=== PATIENT | female | born 1955 | race Caucasian/White ===

== ENCOUNTER → 2017-12-24 | Outpatient (REF) | payer BC ==
[2017-12-24 17:46] LABS: ALBUMIN 4.1 GM/DL (3.2-5.2); ALBUMIN/GLOBULIN RATIO 1.32 (1.00-1.93); ALKALINE PHOSPHATASE 89 U/L (45-117); ALT/SGPT 23 U/L (12-78); ANION GAP 8 MEQ/L (8-16); AST/SGOT 19 U/L (7-37); BILIRUBIN,TOTAL 0.6 MG/DL (0.2-1.0); BLOOD UREA NITROGEN 19 MG/DL (7-18); CALCIUM LEVEL 9.1 MG/DL (8.8-10.2); CARBON DIOXIDE LEVEL 29 MEQ/L (21-32); CHLORIDE LEVEL 106 MEQ/L (98-107); CHOLESTEROL LEVEL 189 MG/DL (<200); CHOLESTEROL RISK RATIO 2.779 (<5); CREATININE FOR GFR 0.89 MG/DL (0.55-1.30); GLOMERULAR FILTRATION RATE > 60.0 (>45); GLUCOSE, FASTING 88 MG/DL (70-100); HDL CHOLESTEROL 68 MG/DL (>40); LDL CHOLESTEROL 104.6 MG/DL (<100); NON-HDL-C 121 MG/DL; POTASSIUM SERUM 4.1 MEQ/L (3.5-5.1); SODIUM LEVEL 143 MEQ/L (136-145); TOTAL PROTEIN 7.2 GM/DL (6.4-8.2); TRIGLYCERIDES LEVEL 82 MG/DL (<150)
[2017-12-24 18:36] LABS: TOTAL 25(OH) VITAMIN D 21.7 NG/ML (30.0-100.0)
== END ==
LOC: M LABDRWCV 16:08
DX: E55.9 Vitamin D deficiency, unspecified (principal); I10 Essential (primary) hypertension
CPT/HCPCS: 80053

== ENCOUNTER 2018-12-02 21:15 | Emergency (ER) | payer BC ==
[~2018-12-02] VITALS: Ht 172.7 cm; Wt 100.0 kg
[~2018-12-02 21:15] MED LIST: CELE1CAP4 PO; COUM2.5T17 PO; LISI10TA2 PO; LYRI75CA PO; METO25TAB OR; PERC5TAB12 PO; SIMV20TA2 PO
[2018-12-02] MEDS ORDERED: OMEP40CA2 (21:28)
[2018-12-02] MEDS: METOPROLOL 5 MG/5 ML VIAL IV SCH ×2 (21:50→22:14)
[2018-12-02 22:10] LABS: BASO # 0.1 10^3/uL (0.0-0.2); BASO % 0.8 % (0.0-1.0); EOS # 0.1 10^3/uL (0.0-0.50); EOS % 1.4 % (0.0-3.0); HEMATOCRIT 40.1 % (36.0-47.0); HEMOGLOBIN 13.1 g/dl (12.0-15.5); LYMPH # 2.8 10^3/uL (1.5-4.5); LYMPH % 38.9 % (24.0-44.0); MEAN CORPUSCULAR HEMOGLOBIN 28.3 pg (27.0-33.0); MEAN CORPUSCULAR HGB CONC 32.7 g/dl (32.0-36.5); MEAN CORPUSCULAR VOLUME 86.6 fl (80.0-96.0); MONO # 0.6 10^3/uL (0.0-0.8); NEUTROPHILS # 3.6 10^3/uL (1.8-7.7); NEUTROPHILS % 50.6 % (36.0-66.0); PLATELET COUNT, AUTOMATED 242 10^3/uL (150-450); RED BLOOD COUNT 4.63 10^6/uL (4.00-5.40); WHITE BLOOD COUNT 7.1 10^3/uL (4.0-10.0)
[2018-12-02 22:14] VITALS: BP 147/85
[2018-12-02] MEDS ORDERED: METOPROLOL TART 25 MG TABLET PO ONE (22:15)
[2018-12-02 22:38] LABS: CALCIUM LEVEL 8.5 MG/DL (8.8-10.2); CREATININE FOR GFR 1.37 MG/DL (0.55-1.30); GLOMERULAR FILTRATION RATE 41.3 (>45); MB/CK RELATIVE INDEX 2.26 (< OR =4); POTASSIUM SERUM 3.6 MEQ/L (3.5-5.1); THYROID STIMULATING HORMONE 3.69 uIU/ML (0.358-3.740); TROPONIN I 0.02 NG/ML (< 0.10)
[2018-12-02 22:48] LABS: INR 0.89; PROTHROMBIN TIME 12.1 SECONDS (12.1-14.4)
[2018-12-02] MEDS ORDERED: ELIQ5TAB PO (23:08)
[2018-12-02] MEDS ORDERED: APIXABAN 5 MG TAB (ELIQUIS) PO ONE (23:15)
[2018-12-02 23:30] VITALS: BP 105/63
--- NOTE | 2018-12-02 23:38 | REP ---
Clinical: Acute chest pain. Comparison: 04/22/2016. Findings: Mediastinum and cardiac silhouette are within normal limits for portable technique. Subtle bibasilar opacities cannot be excluded and should be correlated clinically. No obvious effusion. No pneumothorax. Skeletal structures intact. Impression: Cannot exclude subtle bibasilar opacities raising the possibility of subtle pneumonia or atelectasis. Electronically Signed by Zane Wesley MD 12/02/2018 11:28 P
--- NOTE | 2018-12-04 10:26 | ECGEPIP ---
Stationary ECG Study [facility] - ED Test Date: 2018-12-02 Pat Name: JUJU JEREZ Department: Room: - Gender: F Nuclear Security Officer: EVELYN : 1955 Requested By: CHRISTO Monae Order Number: [id number] Reading MD: Janette Angel Measurements Intervals [place] Rate: 162 P: [place]: 0 QRS: -51 QRSD: 100 T: 26 QT: 291 QTc: 479 Interpretive Statements ATRIAL FIBRILLATION WITH RAPID VENTRICULAR RESPONSE INDETERMINATE AXIS PATTERN CONSISTENT WITH PULMONARY DISEASE INCOMPLETE RIGHT BUNDLE BRANCH BLOCK LEFT ANTERIOR FASCICULAR BLOCK MODERATE ST DEPRESSION SINUS BRADYCARDIA 04/22/16 Electronically Signed On 12-04-2018 10:25:48 EST by Janette Angel
--- NOTE | 2018-12-06 08:53 | ECGEPIP ---
Stationary ECG Study [facility] - ED Test Date: 2018-12-02 Pat Name: JUJU JEREZ Department: Room: - Gender: F Thresher Broomcorn: : 1955 Requested By: CHRISTO Monae Order Number: [id number] Reading MD: Janette Angel Measurements Intervals [place] Rate: 81 P: 44 [place]: 176 QRS: -67 QRSD: 98 T: 14 QT: 385 QTc: 449 Interpretive Statements SINUS RHYTHM INCOMPLETE RIGHT BUNDLE BRANCH BLOCK LEFT ANTERIOR FASCICULAR BLOCK POSSIBLE ANTERIOR MYOCARDIAL INFARCTION, OF INDETERMINATE AGE Electronically Signed On 12-06-2018 8:53:38 EST by Janette Angel
--- NOTE | 2018-12-06 11:15 | ED PDOC ---
Post-Departure Follow-Up keny rosado and remberto faxed formal report of pcxr for fu Bret Saravia MD Dec 06, 2018 11:15
== END 2018-12-02 23:55 | disposition home or self-care (01) ==
LOC: M ED 21:15
DX: I48.0 Paroxysmal atrial fibrillation (principal); K21.9 Gastro-esophageal reflux disease without esophagitis; I10 Essential (primary) hypertension; E78.5 Hyperlipidemia, unspecified

== ENCOUNTER → 2019-01-11 | Outpatient (REF) | payer BC ==
[~2019-01-11] MED LIST changes: +ELIQ5TAB PO; +OMEP40CA2
[2019-01-11 19:33] LABS: ALBUMIN 3.9 GM/DL (3.2-5.2); BILIRUBIN,TOTAL 0.5 MG/DL (0.2-1.0); CALCIUM LEVEL 8.5 MG/DL (8.8-10.2); CHOLESTEROL RISK RATIO 3.803 (<5); CREATININE FOR GFR 1.04 MG/DL (0.55-1.30); GLOMERULAR FILTRATION RATE 56.8 (>45); TOTAL PROTEIN 6.8 GM/DL (6.4-8.2)
== END ==
LOC: M LABDRWCV 18:08
PROVIDERS: ATTEND Physician Assistant Medical
DX: I10 Essential (primary) hypertension (principal)

== ENCOUNTER 2020-09-05 09:30 | Inpatient (IN) | payer BC, MEDICARE ==
[~2020-09-05] VITALS: Ht 172.7 cm; Wt 97.1 kg
[~2020-09-05 09:30] MED LIST changes: +LISI10TA15 PO; -LISI10TA2 PO; +METO1TAB63 OR; -METO25TAB OR; -OMEP40CA2; +OMEP40CA97 PO; -SIMV20TA2 PO; +SIMV20TA22 PO
[2020-09-14] MEDS ORDERED: METO1TAB32 PO (09:20)
--- NOTE | 2020-09-18 06:57 | HPE ---
DATE OF ANTICIPATED ADMISSION: 09/21/2020 ATTENDING PHYSICIAN: Dr. Angelo Lemons CHIEF COMPLAINT: Right knee pain and stiffness. HISTORY: Patient is a 65-year-old female with progressively worsening right knee pain and stiffness. She failed to improve with conservative measures. She continues to have symptoms with weightbearing activities and activities of daily living. She consented for an elective right total knee arthroplasty with Dr. Lemons for her continued symptoms. Medical optimization completed with Kelsey Salazar PA-C. CURRENT MEDICATIONS: - lisinopril/hydrochlorothiazide 10/12 mg daily - Zocor 20 mg daily - metoprolol 25 mg daily - Eliquis 5 mg twice daily - gabapentin 100 mg three times daily if needed MEDICATIONS ALLERGIES: None. CHRONIC MEDICAL CONDITIONS: 1. Hypertension. 2. Hyperlipidemia. 3. Atrial fibrillation. 4. Thoracic aortic aneurysm. 5. Venous insufficiency. 6. Lizarraga's esophagus without dysplasia. 7. Gastroesophageal reflux disease. PAST SURGICAL HISTORY: 1. Left total knee arthroplasty. 2. Right ankle tendon repair. SOCIAL HISTORY: Patient denies tobacco use. She denies drug use. She has one alcoholic beverage per week. REVIEW OF SYSTEMS: Patient denies fevers, chills, nausea, vomiting, or diarrhea. Denies chest pain, shortness of breath, lightheadedness, dizziness, or headaches. She denies any recent upper respiratory or urinary tract infection symptoms. Patient does continue to have right knee pain with weightbearing activities and activities of daily living. PHYSICAL EXAMINATION: GENERAL: Well-nourished, well-developed female in no apparent distress. She is alert, oriented, and cooperative. Mood and affect are appropriate. VITAL SIGNS: Blood pressure 120/70, heart rate 69, respirations 18, height 5 feet 7 inches, weight 208 pounds, temperature 97.5. NECK: Supple without lymphadenopathy. HEART: Regular rate and rhythm. LUNGS: Clear to auscultation bilaterally. Breathing is regular and nonlabored. ABDOMEN: Soft and nontender. Bowel sounds are present. MUSCULOSKELETAL: Right knee: No erythema, edema, or ecchymosis. There is tenderness along the medial and lateral joint lines. Patient can extend to about 0 degrees and flex to 90 degrees. Right lower extremity strength is 5/5. No hip irritability elicited with range of motion testing. Calf is soft and nontender without evidence of deep venous thrombosis (DVT). She is neurovascularly intact distally. LABORATORY DATA: Right knee x-ray notable for end-stage degenerative changes. Hemoglobin A1c 6. Comprehensive metabolic profile: Fasting glucose 92, BUN elevated at 26, creatinine 0.99, sodium 143, potassium 4, chloride 105, carbon dioxide 30, calcium 9.3, total protein 6.7, albumin 4.6, globulin 2.1, albumin/globulin ratio elevated at 2.2. Total bilirubin 0.7, ALT 20, AST 21, alkaline phosphatase 87. IMPRESSION Right knee osteoarthritis with x-rays notable for end-stage degenerative changes. PLAN: Patient has consented for an elective right total knee arthroplasty with Dr. Lemons for her continued symptoms. Medical optimization completed with Kelsey Salazar PA-C. Patient will call [facility] the day prior to surgery to get a report time. She will follow her primary careers counsellor's recommendations on how to take her daily medications and when to stop anticoagulants. Patient will start using her Hibiclens and Bactroban as directed. FLORENCIO
[2020-09-21] MEDS ORDERED: fentaNYL 100 MCG/2 ML INJECTION (J3010) IV SCH (06:00)
[2020-09-21] MEDS ORDERED: LR 1,000 ML IV ONE (06:00)
[2020-09-21] MEDS ORDERED: MIDAZOLAM INJ 2MG/2ML VIAL (J2250 PER 1MG) IV SCH (06:00)
[2020-09-21] MEDS ORDERED: ceFAZolin SOD 2 GM in IV 1 EA IV ONE (06:00)
[2020-09-21] MEDS ORDERED: ceFAZolin 2 GM/D5W 50 ML IV BAG (J0690 PER 500MG) As Ordered ONE (06:24)
[2020-09-21] MEDS ORDERED: fentaNYL 100 MCG/2 ML INJECTION (J3010) As Ordered ONE ×2 (06:51→07:07)
[2020-09-21] MEDS ORDERED: MIDAZOLAM INJ 2MG/2ML VIAL (J2250 PER 1MG) As Ordered ONE ×2 (06:51→07:07)
[2020-09-21] MEDS ORDERED: propofoL 500 MG/50 ML VIAL As Ordered ONE (07:07)
[2020-09-21] MEDS ORDERED: LIDOCAINE 2% 100MG/5ML SDV (FOR ANES.) As Ordered ONE (07:07)
[2020-09-21] MEDS ORDERED: TRANEXAMIC ACID 100 MG/ML 10ML VIAL As Ordered ONE (07:13)
[2020-09-21] MEDS ORDERED: ceFAZolin 1GM VIAL (J0690 PER 500MG) As Ordered ONE (07:13)
[2020-09-21] MEDS ORDERED: EPINEPHrine INJ 1 MG/ML 1ML AMP As Ordered ONE (07:13)
[2020-09-21] MEDS ORDERED: BUPIVACAINE LIPOSOME/PF 1.3% 20ML VIAL (13.3MG/ML)(EXPAREL)(C9290 PER1MG) As Ordered ONE (07:14)
[2020-09-21] MEDS ORDERED: KETOROLAC 60MG 2ML VIAL As Ordered ONE (08:18)
[2020-09-21] MEDS ORDERED: dexameTHASONE 4 MG/ML 1ML VIAL (J1100 PER 1MG) As Ordered ONE (08:18)
[2020-09-21] MEDS ORDERED: METOCLOPRAMIDE INJ 10MG/2ML VIAL (J2765 PER 1) As Ordered ONE (08:18)
[2020-09-21] MEDS ORDERED: ACETAMINOPHEN 1000MG 100ML IV BTL (OFIRMEV) (J0131 PER 10MG) As Ordered ONE (08:18)
[2020-09-21] MEDS ORDERED: ONDANSETRON 4MG/2ML VIAL As Ordered ONE (08:18)
[2020-09-21] MEDS ORDERED: HYDROmorphone HCL 2 MG/ML 1ML VIAL (J1170) As Ordered ONE (08:35)
[2020-09-21] MEDS ORDERED: ROPIvacaine 0.5% 30ML INJECTION (J2795 PER 1MG) ONE (09:25)
[2020-09-21] MEDS ORDERED: LIDOCAINE 1% MDV 20ML VIAL ONE (09:25)
[2020-09-21] MEDS ORDERED: ceFAZolin SOD 2 GM in IV 1 EA IV SCH (09:30)
[2020-09-21] MEDS ORDERED: ACETAMINOPHEN TAB 650MG DOSE (2X325MG) PO PRN (09:30)
[2020-09-21] MEDS ORDERED: ONDANSETRON 4MG/2ML VIAL IV PRN ×2 (09:30)
[2020-09-21] MEDS ORDERED: LR 1,000 ML IV SCH (09:30)
[2020-09-21] MEDS ORDERED: METOCLOPRAMIDE INJ 10MG/2ML VIAL (J2765 PER 1) IV PRN (09:30)
[2020-09-21] MEDS ORDERED: MORPHINE 2 MG/ML 1ML VIAL (J2270) IV PRN (09:30)
[2020-09-21] MEDS ORDERED: MORPHINE 4 MG/ML 1ML VIAL/SYRINGE (J2270) IV PRN (09:30)
[2020-09-21] MEDS ORDERED: fentaNYL 100 MCG/2 ML INJECTION (J3010) IV PRN (09:30)
[2020-09-21] MEDS ORDERED: MEPERIDINE INJ 25 MG/ML VIAL (J2175) IV PRN (09:30)
[2020-09-21] MEDS ORDERED: oxyCODONE 5MG TAB PO PRN (09:30)
--- NOTE | 2020-09-21 10:07 | REP ---
INDICATION: POST OP IN PACU. COMPARISON: None. TECHNIQUE: Cross-table lateral and AP radiographs. FINDINGS: AP and lateral views of the right knee demonstrate right knee arthroplasty components in good position relative to each other and relative to the grindstone bones. Anterior skin jamil and periarticular soft tissue emphysema are seen.. No fracture or subluxation is seen. No opaque foreign body noted. IMPRESSION: Status post right knee arthroplasty.. <Electronically signed by Patrick Peoples > 09/21/20 [id number]
[2020-09-21 12:00] VITALS: BP 142/67
[2020-09-21] MEDS: LR 1,000 ML IV SCH ×2 (12:00→23:48)
[2020-09-21 13:00] VITALS: BP 134/68
--- NOTE | 2020-09-21 13:44 | RO ---
DATE OF OPERATION: 09/21/2020 PREOPERATIVE DIAGNOSIS: Right knee osteoarthritis. POSTOPERATIVE DIAGNOSIS: Right knee osteoarthritis. PROCEDURE: Right total knee arthroplasty using Attune rotating platform, cruciate-retaining size 6 femur, size 5 tibial tray, 7 thickness polyethylene and 35 patellar button. SURGEON: Angelo Lemons MD SPECIAL SYSTEMS TECHNICIAN: Сергей Dang PA-C ANESTHESIA: General. EBL: 50. COMPLICATIONS: None. DESCRIPTION OF PROCEDURE: Patient was taken to the operating room and placed in the supine position after general anesthesia was induced. The right lower extremity was prepped and draped in the usual sterile fashion. A time out was performed. Tourniquet was inflated. I created a longitudinal incision over the anterior aspect of the right knee, and sharp dissection was carried down through subcutaneous tissue until the fascia was encountered. A medial parapatellar arthrotomy was performed. I everted the patella, flexed the knee up, removed osteophytes with rongeur. I used canal-initiating reamer on the femoral side followed by the intramedullary guide set at 5 degree valgus and 9 mm cut. This was pinned in place. Then the distal femoral cut was made protecting soft tissues. I sized the femur to be 6, 6 cutting block was secured. The remaining cuts were made protecting soft tissues and removed any more osteophytes. Tibial alignment guide was placed in appropriate amount of posterior slope and valgus. This was pinned in place at about 4 mm off the low side which was medial and the proximal tibial cut was made protecting the PCL and collaterals. The excess bone was removed. I then made the sulcus cut on the femur with the guide, removed soft tissue and osteophytes from either side of the knee and used a spacer block to determine that size 7 polyethylene seemed to be the most appropriate thickness. The tibial tray was then prepared with size 5 tray that fit very nicely. This was secured, drilled, broached and the trial components were then placed. The femoral component fit very nicely and I then free-hand cut the patella removing about 7 mm of bone and size 35 template fit nicely. This was drilled, trial button was placed and the patella tracked very nicely. I drilled the end of the femur as well; the processing assistant prepared the bone cement in modern technique. I irrigated, placed the TXA in the deep tissues and the Exparel in the deep tissues. I irrigated again and dried the bony surfaces and cemented in the components, removed excess bone cement, held the patella in place until the cement had hardened with patellar clamp, irrigated copiously. The deep layer was repaired with interrupted #1 Vicryl suture and running Stratafix suture until watertight closure was obtained. I deflated the tourniquet when the cement was hardened, closed the subcu with 2-0 Vicryl after irrigation and the skin with jamil. Sterile dressing was applied. Tourniquet was deflated. She was taken to the recovery room in stable condition. There were no known complications. The plan will be routine postop for total knee. The processing assistant was instrumental in holding retractors and assisting in mixing the bone cement and assisting in wound closure. FLORENCIO
[2020-09-21 13:48] LABS: HEMATOCRIT 36.9 % (36.0-47.0); HEMOGLOBIN 11.7 g/dl (12.0-15.5); MEAN CORPUSCULAR HGB CONC 31.7 g/dl (32.0-36.5); MEAN CORPUSCULAR VOLUME 88.3 fl (80.0-96.0); PLATELET COUNT, AUTOMATED 204 10^3/uL (150-450); RED BLOOD COUNT 4.18 10^6/uL (4.00-5.40)
[2020-09-21 14:00] VITALS: BP 94/66
[2020-09-21 15:30] VITALS: BP 98/66
[2020-09-21] MEDS: ceFAZolin SOD 2 GM in IV 1 EA IV SCH (16:22)
--- NOTE | 2020-09-21 16:55 | HPEPDOC ---
General Date of Admission Sep 21, 2020 at 06:26 Date of Service: Sep 21, 2020 Chief Complaint The patient is a 65-year-old female admitted with a reason for visit of Right Knee Arthritis. Source: Patient Exam Limitations: No limitations Severity: Mild History of Present Illness Patient 65 years old female with past medical history of hypertension, hyperlipidemia, thoracic aortic aneurysm presented hospital for elective right knee replacement. The surgery was done today and patient tolerated procedure well. Patient denied fever, chills, nausea, vomiting, diarrhea or dysuria. Patient stated that thoracic surgeon follows thoracic aortic aneurysm and it was checked few months ago. The size of thoracic aneurysm was around 4.5 cm. Home Medications Scheduled Apixaban (Eliquis) 5 Mg Tab, 1 TAB PO BID Lisinopril/Hydrochlorothiazide (Lisinopril-Hctz 10-12.5 mg Tab) 1 Tab Tab, 1 TAB PO DAILY, (Reported) Metoprolol Succinate (Metoprolol Succinate) 25 Mg Tab.er.24h, 25 MG PO DAILY, (Reported) Omeprazole (Omeprazole) 40 Mg Cap, 40 MG PO DAILY, (Reported) Simvastatin (Simvastatin) 20 Mg Tab, 20 MG PO DAILY, (Reported) Allergies Coded Allergies: No Known Allergies (Unverified , 09/14/20) Past Medical History Medical History 1. Hypertension. 2. Hyperlipidemia. 3. Atrial fibrillation. 4. Thoracic aortic aneurysm. 5. Venous insufficiency. 6. Lizarraga's esophagus without dysplasia. 7. Gastroesophageal reflux disease. Surgical History 1. Left total knee arthroplasty. 2. Right ankle tendon repair. Family History I personally reviewed, family history and found not pertinent Social History * Smoker: Denies Alcohol: occationally Drugs: denies A-FIB/CHADSVASC A-FIB History Current/History of A-Fib/PAF?: Yes Current PO Anticoag Therapy: Yes Review of Systems Constitutional: Denies: Chills, Fever Eyes: Denies: Pain ENT: Denies: Head Aches Skin: Denies: Rash, Lesions Pulmonary: Denies: Dyspnea, Cough Cardiovascular: Denies: Chest Pain, Palpitations Gastrointestinal: Denies: Nausea, Vomiting Genitourinary: Denies: Dysuria Hematologic: Denies: Bruising Endocrine: Denies: Polydipsia Musculoskeletal: Denies: Neck Pain Neurological: Denies: Weakness Psych: Reports: Mood Normal Physical Examination General Exam: Positive: Alert, Cooperative Eye Exam: Positive: PERRLA ENT Exam: Positive: Atraumatic Neck Exam: Positive: Supple; Negative: JVD Chest Exam: Positive: Clear to auscultation Heart Exam: Positive: Irregular Rhythm Telemetry: Positive: Atrial fibrillation Abdomen Exam: Positive: Normal bowel sounds Extremity Exam: Negative: Clubbing, Cyanosis Skin Exam: Positive: Nl turgor and temperature Neuro Exam: Positive: Strength at 5/5 X4 ext, Cranial Nerves 3-12 NL Psych Exam: Positive: Mental status NL Vital Signs Vital Signs Date Time Temp Pulse Resp B/P (MAP) Pulse Ox O2 Delivery O2 Flow Rate FiO2 09/21/20 12:00 97.7 75 16 142/67 (92) 96 Room Air 09/21/20 09:20 3 Laboratory Data Labs 24H Laboratory Tests 2 09/21/20 13:31: Nucleated Red Blood Cells % (auto) 0.0 CBC/BMP Laboratory Tests 09/21/20 13:31 Assessment/Plan Patient 65 years old female with past medical history of hypertension, hyperlipidemia, thoracic aortic aneurysm presented hospital for elective right knee replacement. The surgery was done today and patient tolerated procedure well. Patient denied fever, chills, nausea, vomiting, diarrhea or dysuria. Patient stated that thoracic surgeon follows thoracic aortic aneurysm and it was checked few months ago. The size of thoracic aneurysm was around 4.5 cm. Problems (1) Hypertension Status: Chronic Problem Text: Pressure under control Continue home cardioprotective medications (2) Hyperlipidemia Status: Chronic Problem Text: Continue statin (3) Status post right knee replacement Status: Acute Problem Text: Incentive spirometry Pain management (4) Atrial fibrillation Status: Chronic Problem Text: Heart rate under control Continue oral targeted anticoagulation (5) GERD (gastroesophageal reflux disease) Status: Chronic Problem Text: Continue PPI Plan / VTE VTE Prophylaxis Ordered?: Yes RACHEL OZUNA DO Sep 21, 2020 16:55
[2020-09-21 18:00] VITALS: BP 106/64
[2020-09-21] MEDS: PERCOCET 5MG/325MG TAB PO PRN (19:50)
[2020-09-21 20:38] VITALS: BP 106/65
[2020-09-21] MEDS ORDERED: SIMVASTATIN 20 MG TAB PO SCH (21:00)
[2020-09-21] MEDS ORDERED: lisinopriL 10 MG TAB PO SCH (21:00)
[2020-09-22 00:31] VITALS: O2SAT 96
[2020-09-22] MEDS: ceFAZolin SOD 2 GM in IV 1 EA IV SCH (00:53)
[2020-09-22 00:54] VITALS: BP 105/63
[2020-09-22 06:00] VITALS: BP 126/65
[2020-09-22] MEDS ORDERED: PERC5TAB12 PO (06:10)
[2020-09-22 08:55] VITALS: BP 126/65
[2020-09-22] MEDS: PERCOCET 5MG/325MG TAB PO PRN ×2 (08:56→13:39)
[2020-09-22] MEDS ORDERED: MIRALAX *UNIT DOSE* 17GM PACKET PO SCH (09:00)
[2020-09-22] MEDS ORDERED: MOM 30ML SUSPENSION UDC PO SCH (09:00)
[2020-09-22] MEDS ORDERED: OMEPRAZOLE 20 MG CAP PO SCH (09:00)
[2020-09-22] MEDS ORDERED: METOPROLOL SUCC *XL* 25MG TAB (TopROL *XL*) PO SCH (09:00)
[2020-09-22] MEDS ORDERED: APIXABAN 5 MG TAB (ELIQUIS) PO SCH (09:00)
[2020-09-22 10:00] VITALS: BP 123/63
--- NOTE | 2020-09-22 11:32 | IPN ---
ORTHOPAEDIC PROGRESS NOTE DATE: 09/21/2020 SUBJECTIVE AND PLAN: Patient seen and examined pre-operatively. She wished to go ahead with a right total knee arthroplasty. She understands the nature of this, the risks of bleeding, infection, damage to nerves and vessels, persistent pain, mayer loosening, blood clots, medical problems, among others. FLORENCIO
[2020-09-22 14:00] VITALS: BP 140/77
--- NOTE | 2020-09-26 07:26 | DS ---
DATE OF ADMISSION: 09/21/2020 DATE OF DISCHARGE: 09/22/2020 ATTENDING: Angelo Lemons MD. ADMITTING DIAGNOSIS: Osteoarthritis right knee. OTHER DIAGNOSES: Include: * Hypertension. * Elevated lipids. * Afib. * Thoracic aortic aneurysm. * Venous insufficiency. * Lizarraga's esophagitis. * Gastroesophageal reflux disease. DISCHARGE DIAGNOSIS: Osteoarthritis right knee status post right total knee arthroplasty. HISTORY: This is a 65-year-old female patient with progressively worsening right knee pain and stiffness. She failed to improve with conservative management. She was admitted for elective knee replacement on the right side. OPERATION PERFORMED: Right total knee arthroplasty. HOSPITAL COURSE: The patient was admitted on the day of surgery and underwent the above listed procedure which was uneventful. She did well in the post- operative period and hospital course was without complications. She was up with physical therapy per their protocol and her pain was controlled. On the day of discharge she was doing well, weightbearing as tolerated on her right lower extremity. She will use Eliquis 5 mg twice a day and Bon stockings for DVT prophylaxis per the protocol. She will then follow up with her primary to continue her Eliquis as directed by her primary. She will follow up in 10-14 days for a surgical follow up. She will resume her pre-operative medications and diet. She will use oral pain medications for pain control. She was given instructions to include, but not limited to wound monitoring, activity limitations. Please refer to the medical record for further details. FLORENCIO
== END 2020-09-22 15:17 | disposition home or self-care (01) | DRG 470 ==
LOC: M OR 09-21 06:26 → M MS5PR 09-21 12:00
PROVIDERS: ADMIT Orthopaedic Surgery; ATTEND Orthopaedic Surgery
PROC: 0SRC0J9 Replacement of Right Knee Joint with Synthetic Substitute, Cemented, Open Approach (ICD-10-PCS; principal; 2020-09-21 07:30)
DX: M17.11 Unilateral primary osteoarthritis, right knee (principal); I48.20 Chronic atrial fibrillation, unspecified; I10 Essential (primary) hypertension; Z79.899 Other long term (current) drug therapy; E78.5 Hyperlipidemia, unspecified; I87.8 Other specified disorders of veins; K21.9 Gastro-esophageal reflux disease without esophagitis; K22.70 Barrett's esophagus without dysplasia; Z96.652 Presence of left artificial knee joint; I71.2 Thoracic aortic aneurysm, without rupture

== ENCOUNTER → 2020-09-07 | Outpatient (CLI) | payer MEDICARE ==
[~2020-09-07] MED LIST changes: +METO1TAB32 PO
[2020-09-07 11:26] LABS: INR 1.04; PROTHROMBIN TIME 13.8 SECONDS (12.5-14.3)
--- NOTE | 2020-09-07 12:20 | REP ---
INDICATION: RT KNEE ARTHRITIS, PRE OP COMPARISON: 01/15/2019. TECHNIQUE: PA/Lateral FINDINGS: Lungs: Clear, no infiltrate. Heart: Normal in size. Mediastinum: Mediastinal silhouette unremarkable. Pleural angles: Unremarkable.. Bones and soft tissues: Unremarkable. IMPRESSION: No acute pulmonary disease. <Electronically signed by Juan Pablo Frost > 09/07/20 [id number]
== END ==
LOC: M LAB 10:38
PROVIDERS: ATTEND Orthopaedic Surgery
DX: Z01.818 Encounter for other preprocedural examination (principal); M17.11 Unilateral primary osteoarthritis, right knee

== ENCOUNTER → 2020-09-16 | Outpatient (CLI) | payer MEDICARE | LOC: M LABSMTC 11:18 | PROVIDERS: ATTEND Anesthesiology | DX: Z01.812 Encounter for preprocedural laboratory examination (principal); Z20.828 Contact with and (suspected) exposure to other viral communicable diseases | CPT/HCPCS: C9803; U0003 ==

== ENCOUNTER → 2021-06-07 | Outpatient (REF) | payer MEDICARE ==
[~2021-06-07] MED LIST changes: +OMEP40CA4 PO; -OMEP40CA97 PO
[2021-06-07 16:25] LABS: ALBUMIN 3.8 GM/DL (3.2-5.2); ALT/SGPT 22 U/L (12-78); BILIRUBIN,TOTAL 0.4 MG/DL (0.2-1.0); BLOOD UREA NITROGEN 23 MG/DL (7-18); CARBON DIOXIDE LEVEL 31 MEQ/L (21-32); CHLORIDE LEVEL 106 MEQ/L (98-107); CHOLESTEROL LEVEL 186 MG/DL (<200); CHOLESTEROL RISK RATIO 3.263 (<5); CREATININE FOR GFR 0.97 MG/DL (0.55-1.30); GLOMERULAR FILTRATION RATE > 60.0 (>45); GLUCOSE, FASTING 95 MG/DL (70-100); HDL CHOLESTEROL 57 MG/DL (>40); LDL CHOLESTEROL 110 MG/DL (<100); NON-HDL-C 129 MG/DL; POTASSIUM SERUM 3.9 MEQ/L (3.5-5.1); SODIUM LEVEL 142 MEQ/L (136-145); TOTAL PROTEIN 6.8 GM/DL (6.4-8.2); TRIGLYCERIDES LEVEL 96 MG/DL (<150)
[2021-06-07 16:34] LABS: BASO # 0.1 10^3/uL (0.0-0.2); BASO % 1.2 % (0.0-1.0); EOS # 0.1 10^3/uL (0.0-0.5); EOS % 1.4 % (0.0-3.0); HEMATOCRIT 40.7 % (36.0-47.0); HEMOGLOBIN 12.8 g/dl (12.0-15.5); LYMPH # 2.1 10^3/uL (1.5-5.0); LYMPH % 41.4 % (24.0-44.0); MEAN CORPUSCULAR HEMOGLOBIN 27.8 pg (27.0-33.0); MEAN CORPUSCULAR HGB CONC 31.4 g/dl (32.0-36.5); MEAN CORPUSCULAR VOLUME 88.5 fl (80.0-96.0); MONO # 0.5 10^3/uL (0.0-0.8); MONO % 9.7 % (2.0-8.0); NEUTROPHILS # 2.3 10^3/uL (1.5-8.5); NEUTROPHILS % 46.1 % (36.0-66.0); PLATELET COUNT, AUTOMATED 255 10^3/uL (150-450); WHITE BLOOD COUNT 5.1 10^3/uL (4.0-10.0)
[2021-06-07 16:49] LABS: HEMOGLOBIN A1c 5.9 %
== END ==
LOC: M SFHCCAPE 07:12
PROVIDERS: ATTEND Physician Assistant
DX: R73.09 Other abnormal glucose (principal)

== ENCOUNTER → 2021-11-07 | Outpatient (CLI) | payer MEDICARE | LOC: M LABSMTC 09:07 | PROVIDERS: ATTEND Anesthesiology | DX: Z01.818 Encounter for other preprocedural examination (principal); Z11.52 Encounter for screening for COVID-19 ==

== ENCOUNTER 2021-11-12 06:50 | Day surgery (SDC) | payer MEDICARE ==
[~2021-11-12] VITALS: Ht 172.7 cm; Wt 94.8 kg
[~2021-11-12 06:50] MED LIST changes: +NS 1,000 ML IV ONE
--- NOTE | 2021-11-12 07:47 | ROOR ---
Patient Name: Celsa Leon Procedure Date: 11/12/2021 7:32 AM Date of : 1955 Age: 66 Room: [facility] Gender: Female Note Status: Finalized Procedure: Upper Endoscopy + Biopsies Indications: Heartburn, Exclusion of Lizarraga's esophagus Providers: Kevan Haile MD Referring MD: CARMEN Escalante pa-c Requesting Provider: Medicines: Monitored Anesthesia Care Complications: No immediate complications. Procedure: Pre-Anesthesia Assessment: - The heart rate, respiratory rate, oxygen saturations, blood pressure, adequacy of pulmonary ventilation, and response to care were monitored throughout the procedure. The Endoscope was introduced through the mouth, and advanced to the second part of duodenum. The upper GI endoscopy was accomplished without difficulty. The patient tolerated the procedure well. Findings: The Z-line was variable and was found 40 cm from the incisors. Multiple biopsies were obtained with cold forceps for evaluation to rule out Lizarraga's Esophagus randomly at the gastroesophageal junction. A small hiatal hernia was present. No other significant abnormalities were identified in a careful examination of the stomach. The exam of the duodenum was otherwise normal. Impression: - Z-line variable, 40 cm from the incisors. - Small hiatal hernia. - Multiple biopsies were obtained at the gastroesophageal junction. - The examination was otherwise normal. Recommendation: - Patient has a contact number available for emergencies. The signs and symptoms of potential delayed complications were discussed with the patient. Return to normal activities tomorrow. Written discharge instructions were provided to the patient. - High fiber diet. - Discharge patient to home. - Follow an antireflux regimen. - Continue present medications. - Await pathology results. - Telephone GI clinic for pathology results in 1 week. - Return to referring physician. - The findings and recommendations were discussed with the patient. Procedure Code(s): --- Professional --- 05792, Esophagogastroduodenoscopy, flexible, transoral; with biopsy, single or multiple Diagnosis Code(s): --- Professional --- K22.8, Other specified diseases of esophagus K44.9, Diaphragmatic hernia without obstruction or gangrene R12, Heartburn CPT copyright 2019 [employer]. All rights reserved. The codes documented in this report are preliminary and upon elevator adjuster review may be revised to meet current compliance requirements. Kevan Haile MD Kevan Haile MD 11/12/2021 7:47:23 AM Electronically signed by Kevan Haile MD Number of Addenda: 0 Note Initiated On: 11/12/2021 7:32 AM Estimated Blood Loss: Estimated blood loss: none.
[2021-11-12] MEDS ORDERED: LIDOCAINE 2% 100MG/5ML SDV (FOR ANES.) As Ordered ONE (07:49)
[2021-11-12] MEDS ORDERED: propofoL 200 MG/20 ML VIAL As Ordered ONE ×2 (07:49→07:53)
[2021-11-12] MEDS ORDERED: fentaNYL 100 MCG/2 ML INJECTION (J3010) As Ordered ONE (07:50)
--- NOTE | 2021-11-12 08:16 | ROOR ---
Patient Name: Celsa Leon Procedure Date: 11/12/2021 7:33 AM Date of : 1955 Age: 66 Room: [facility] Gender: Female Note Status: Finalized Procedure: Total Colonoscopy to Cecum + Cold Snare Polypectomy + Hemoclips Indications: Colon cancer screening in patient at increased risk: Colorectal cancer in mother Providers: Kevan Haile MD Referring MD: CARMEN Escalante pa-c Requesting Provider: Medicines: Monitored Anesthesia Care Complications: No immediate complications. Procedure: Pre-Anesthesia Assessment: - The heart rate, respiratory rate, oxygen saturations, blood pressure, adequacy of pulmonary ventilation, and response to care were monitored throughout the procedure. The Colonoscope was introduced through the anus and advanced to the cecum, identified by appendiceal orifice and ileocecal valve. The colonoscopy was performed without difficulty. The patient tolerated the procedure well. The quality of the bowel preparation was excellent. Findings: The perianal and digital rectal examinations were normal. Non-bleeding internal hemorrhoids were found during retroflexion. The hemorrhoids were small and Grade I (internal hemorrhoids that do not prolapse). Scattered small-mouthed diverticula were found in the recto-sigmoid colon, sigmoid colon and descending colon. Two semi-pedunculated polyps were found in the mid ascending colon. The polyps were small in size. These polyps were removed with a cold snare. Resection and retrieval were complete. To prevent bleeding after the polypectomy, two hemostatic clips were successfully placed. There was no bleeding at the end of the procedure. The exam was otherwise without abnormality on direct and retroflexion views. Impression: - Non-bleeding internal hemorrhoids. - Diverticulosis in the recto-sigmoid colon, in the sigmoid colon and in the descending colon. - Two small polyps in the mid ascending colon, removed with a cold snare. Resected and retrieved. Clips were placed. - The examination was otherwise normal on direct and retroflexion views. - The exam was otherwise normal to the cecum. Recommendation: - Patient has a contact number available for emergencies. The signs and symptoms of potential delayed complications were discussed with the patient. Return to normal activities tomorrow. Written discharge instructions were provided to the patient. - High fiber diet. - Discharge patient to home. - Continue present medications. - Await pathology results. - Telephone GI clinic for pathology results in 1 week. - Repeat colonoscopy in 3 years for surveillance based on pathology results. - Return to referring physician. - The findings and recommendations were discussed with the patient. Procedure Code(s): --- Professional --- 11785, Colonoscopy, flexible; with removal of tumor(s), polyp(s), or other lesion(s) by snare technique Diagnosis Code(s): --- Professional --- Z80.0, Family history of malignant neoplasm of digestive organs K64.0, First degree hemorrhoids K63.5, Polyp of colon K57.30, Diverticulosis of large intestine without perforation or abscess without bleeding CPT copyright 2019 [employer]. All rights reserved. The codes documented in this report are preliminary and upon line installation supervisor review may be revised to meet current compliance requirements. Kevan Haile MD Kevan Haile MD 11/12/2021 8:16:23 AM Electronically signed by Kevan Haile MD Number of Addenda: 0 Note Initiated On: 11/12/2021 7:33 AM Estimated Blood Loss: Estimated blood loss: none.
[2021-11-12 08:30] VITALS: BP 96/58
== END 2021-11-12 08:46 | disposition home or self-care (01) ==
LOC: M OPP 06:50
PROVIDERS: ATTEND Internal Medicine Gastroenterology
DX: Z12.11 Encounter for screening for malignant neoplasm of colon (principal); Z80.0 Family history of malignant neoplasm of digestive organs; D12.2 Benign neoplasm of ascending colon; K57.30 Diverticulosis of large intestine without perforation or abscess without bleeding; K64.0 First degree hemorrhoids; K22.89 Other specified disease of esophagus; K44.9 Diaphragmatic hernia without obstruction or gangrene; R12 Heartburn; Z79.899 Other long term (current) drug therapy
CPT/HCPCS: 43239; 45385; 88305; J3010

== ENCOUNTER → 2021-12-17 | Outpatient (REF) | payer MEDICARE ==
[~2021-12-17] MED LIST changes: -LISI10TA15 PO; +LISI10TA24 PO; -NS 1,000 ML IV ONE
[2021-12-17 16:37] LABS: HEMATOCRIT 43.1 % (36.0-47.0); HEMOGLOBIN 13.6 g/dl (12.0-15.5); MEAN CORPUSCULAR HEMOGLOBIN 27.7 pg (27.0-33.0); MEAN CORPUSCULAR HGB CONC 31.6 g/dl (32.0-36.5); MEAN CORPUSCULAR VOLUME 87.8 fl (80.0-96.0); PLATELET COUNT, AUTOMATED 266 10^3/uL (150-450); RED BLOOD COUNT 4.91 10^6/uL (4.00-5.40); WHITE BLOOD COUNT 5.3 10^3/uL (4.0-10.0)
[2021-12-17 17:34] LABS: ALBUMIN 4.1 GM/DL (3.2-5.2); BILIRUBIN,TOTAL 0.5 MG/DL (0.2-1.0); CALCIUM LEVEL 9.4 MG/DL (8.8-10.2); CHOLESTEROL RISK RATIO 2.838 (<5); CREATININE FOR GFR 1.09 MG/DL (0.55-1.30); GLOMERULAR FILTRATION RATE 53.3 (>45); THYROID STIMULATING HORMONE 1.16 uIU/ML (0.358-3.740); TOTAL 25(OH) VITAMIN D 26.8 NG/ML (30.0-100.0); TOTAL PROTEIN 7.2 GM/DL (6.4-8.2)
[2021-12-17 19:05] LABS: HEMOGLOBIN A1c 6.1 %
== END ==
LOC: M SFHCCAPE 09:44
PROVIDERS: ATTEND Physician Assistant
DX: E78.5 Hyperlipidemia, unspecified (principal); I10 Essential (primary) hypertension; R73.01 Impaired fasting glucose; Z79.899 Other long term (current) drug therapy

== ENCOUNTER → 2022-07-08 | Outpatient (REF) | payer MEDICARE ==
[2022-07-08 17:25] LABS: BASO # 0.1 10^3/uL (0.0-0.2); BASO % 1.4 % (0.0-1.0); EOS # 0.1 10^3/uL (0.0-0.5); EOS % 1.9 % (0.0-3.0); HEMATOCRIT 42.5 % (36.0-47.0); HEMOGLOBIN 13.3 g/dl (12.0-15.5); LYMPH # 1.9 10^3/uL (1.5-5.0); LYMPH % 43.6 % (24.0-44.0); MEAN CORPUSCULAR HEMOGLOBIN 27.7 pg (27.0-33.0); MEAN CORPUSCULAR HGB CONC 31.3 g/dl (32.0-36.5); MEAN CORPUSCULAR VOLUME 88.4 fl (80.0-96.0); MONO # 0.4 10^3/uL (0.0-0.8); MONO % 9.2 % (2.0-8.0); NEUTROPHILS # 1.9 10^3/uL (1.5-8.5); NEUTROPHILS % 43.7 % (36.0-66.0); PLATELET COUNT, AUTOMATED 244 10^3/uL (150-450); RED BLOOD COUNT 4.81 10^6/uL (4.00-5.40); WHITE BLOOD COUNT 4.2 10^3/uL (4.0-10.0)
[2022-07-08 21:00] LABS: ALBUMIN 3.7 GM/DL (3.2-5.2); BILIRUBIN,TOTAL 0.3 MG/DL (0.2-1.0); CALCIUM LEVEL 9.3 MG/DL (8.8-10.2); CHOLESTEROL RISK RATIO 2.632 (<5); CREATININE FOR GFR 1.16 MG/DL (0.55-1.30); GLOMERULAR FILTRATION RATE 49.5 (>45); THYROID STIMULATING HORMONE 1.63 uIU/ML (0.358-3.740); TOTAL 25(OH) VITAMIN D 40.7 NG/ML (30.0-100.0); TOTAL PROTEIN 7.2 GM/DL (6.4-8.2)
== END ==
LOC: M SFHCCAPE 07:14
PROVIDERS: ATTEND Physician Assistant
DX: E55.9 Vitamin D deficiency, unspecified (principal); I10 Essential (primary) hypertension; E78.5 Hyperlipidemia, unspecified; Z79.899 Other long term (current) drug therapy

== ENCOUNTER → 2023-01-07 | Outpatient (REF) | payer MEDICARE | LOC: M SFHCCAPE 07:31 | PROVIDERS: ATTEND Physician Assistant | DX: R73.01 Impaired fasting glucose (principal) ==

== ENCOUNTER → 2023-07-21 | Outpatient (REF) | payer MEDICARE ==
[2023-07-21 17:47] LABS: BASO # 0.1 10^3/uL (0.0-0.2); BASO % 1.7 % (0.0-1.0); EOS # 0.1 10^3/uL (0.0-0.5); EOS % 1.9 % (0.0-3.0); HEMATOCRIT 41.5 % (36.0-47.0); HEMOGLOBIN 13.2 g/dl (12.0-15.5); LYMPH # 1.9 10^3/uL (1.5-5.0); LYMPH % 40.1 % (24.0-44.0); MEAN CORPUSCULAR HEMOGLOBIN 28.1 pg (27.0-33.0); MEAN CORPUSCULAR HGB CONC 31.8 g/dl (32.0-36.5); MEAN CORPUSCULAR VOLUME 88.3 fl (80.0-96.0); MONO # 0.4 10^3/uL (0.0-0.8); MONO % 8.4 % (2.0-8.0); NEUTROPHILS # 2.3 10^3/uL (1.5-8.5); NEUTROPHILS % 47.5 % (36.0-66.0); PLATELET COUNT, AUTOMATED 251 10^3/uL (150-450); WHITE BLOOD COUNT 4.8 10^3/uL (4.0-10.0)
[2023-07-21 18:06] LABS: THYROID STIMULATING HORMONE 1.768 uIU/ML (0.55-4.78)
[2023-07-21 18:12] LABS: ALBUMIN 3.9 G/DL (3.2-5.2); BILIRUBIN,TOTAL 0.6 MG/DL (0.3-1.2); CALCIUM LEVEL 9.1 MG/DL (8.3-10.6); CHOLESTEROL RISK RATIO 2.78 (<5); CREATININE FOR GFR 1.04 MG/DL (0.55-1.30); GLOMERULAR FILTRATION RATE 55.9 (>45); HDL CHOLESTEROL 62.1 MG/DL (>40); LDL CHOLESTEROL 97.7 MG/DL (<100); NON-HDL-C 110.9 MG/DL; POTASSIUM SERUM 4.2 MMOL/L (3.5-5.1); TOTAL PROTEIN 6.6 G/DL (5.7-8.2)
== END ==
LOC: M SFHCCAPE 07:41
PROVIDERS: ATTEND Physician Assistant Medical
DX: R73.01 Impaired fasting glucose (principal); I10 Essential (primary) hypertension; E78.5 Hyperlipidemia, unspecified; E55.9 Vitamin D deficiency, unspecified; Z79.899 Other long term (current) drug therapy

== ENCOUNTER → 2024-01-20 | Outpatient (REF) | payer MEDICARE ==
[2024-01-20 17:34] LABS: BASO # 0.1 10^3/uL (0.0-0.2); BASO % 1.7 % (0.0-1.0); EOS # 0.1 10^3/uL (0.0-0.5); EOS % 1.5 % (0.0-3.0); HEMATOCRIT 39.4 % (36.0-47.0); HEMOGLOBIN 12.5 g/dl (12.0-15.5); LYMPH % 42.6 % (24.0-44.0); MEAN CORPUSCULAR HEMOGLOBIN 28.5 pg (27.0-33.0); MEAN CORPUSCULAR HGB CONC 31.7 g/dl (32.0-36.5); MONO # 0.4 10^3/uL (0.0-0.8); MONO % 9.4 % (2.0-8.0); NEUTROPHILS # 2.1 10^3/uL (1.5-8.5); NEUTROPHILS % 44.6 % (36.0-66.0); PLATELET COUNT, AUTOMATED 235 10^3/uL (150-450); RED BLOOD COUNT 4.38 10^6/uL (4.00-5.40); WHITE BLOOD COUNT 4.7 10^3/uL (4.0-10.0)
[2024-01-20 18:03] LABS: ALBUMIN 3.6 G/DL (3.2-5.2); ALKALINE PHOSPHATASE 73 U/L (46-116); ALT/SGPT < 9 U/L (7.0-40); AST/SGOT 16 U/L (<34); BILIRUBIN,TOTAL 0.6 MG/DL (0.3-1.2); BLOOD UREA NITROGEN 26 MG/DL (9-23); CALCIUM LEVEL 8.8 MG/DL (8.3-10.6); CARBON DIOXIDE LEVEL 30 MMOL/L (20-31); CHLORIDE LEVEL 104 MMOL/L (98-107); CREATININE FOR GFR 1.01 MG/DL (0.55-1.30); GLOMERULAR FILTRATION RATE 57.9 (>45); GLUCOSE, FASTING 87 MG/DL (74-106); POTASSIUM SERUM 4.3 MMOL/L (3.5-5.1); SODIUM LEVEL 139 MMOL/L (136-145); TOTAL PROTEIN 6.4 G/DL (5.7-8.2)
== END ==
LOC: M SFHCCAPE 07:18
PROVIDERS: ATTEND Physician Assistant Medical
DX: K22.70 Barrett's esophagus without dysplasia (principal); I10 Essential (primary) hypertension; R73.03 Prediabetes

== ENCOUNTER → 2024-05-19 | Outpatient (REF) | payer MEDICARE ==
[2024-05-19 18:29] LABS: BASO # 0.1 10^3/uL (0.0-0.2); BASO % 1.5 % (0.0-1.0); EOS # 0.1 10^3/uL (0.0-0.5); EOS % 2.2 % (0.0-3.0); HEMOGLOBIN 12.9 g/dl (12.0-15.5); LYMPH # 1.9 10^3/uL (1.5-5.0); LYMPH % 41.3 % (24.0-44.0); MEAN CORPUSCULAR HEMOGLOBIN 28.4 pg (27.0-33.0); MEAN CORPUSCULAR HGB CONC 32.3 g/dl (32.0-36.5); MEAN CORPUSCULAR VOLUME 88.1 fl (80.0-96.0); MONO # 0.4 10^3/uL (0.0-0.8); MONO % 9.7 % (2.0-8.0); NEUTROPHILS # 2.1 10^3/uL (1.5-8.5); NEUTROPHILS % 45.1 % (36.0-66.0); PLATELET COUNT, AUTOMATED 249 10^3/uL (150-450); RED BLOOD COUNT 4.54 10^6/uL (4.00-5.40); WHITE BLOOD COUNT 4.6 10^3/uL (4.0-10.0)
[2024-05-19 18:42] LABS: ALBUMIN 3.7 G/DL (3.2-5.2); ALKALINE PHOSPHATASE 86 U/L (46-116); ALT/SGPT 18 U/L (7.0-40); AST/SGOT 12 U/L (<34); BILIRUBIN,TOTAL 0.4 MG/DL (0.3-1.2); BLOOD UREA NITROGEN 31 MG/DL (9-23); CALCIUM LEVEL 9.5 MG/DL (8.3-10.6); CARBON DIOXIDE LEVEL 26 MMOL/L (20-31); CHLORIDE LEVEL 109 MMOL/L (98-107); CREATININE FOR GFR 0.95 MG/DL (0.55-1.30); GLOMERULAR FILTRATION RATE > 60.0 (>39); GLUCOSE, FASTING 91 MG/DL (74-106); POTASSIUM SERUM 4.6 MMOL/L (3.5-5.1); SODIUM LEVEL 142 MMOL/L (136-145); TOTAL PROTEIN 6.6 G/DL (5.7-8.2)
[2024-05-19 18:44] LABS: FOLATE > 24.0 NG/ML (>5.4); VITAMIN B12 LEVEL 456 PG/ML (211-911)
[2024-05-19 18:53] LABS: ERYTHROCYTE SEDIMENTATION RATE 20 mm/hr (0-30)
[2024-05-20 13:55] LABS: RHEUMATOID FACTOR QUANT < 3.5 IU/ML (<14)
== END ==
LOC: M LABDRWCV 17:25
PROVIDERS: ATTEND Psychiatry & Neurology Neurology
DX: G31.84 Mild cognitive impairment of uncertain or unknown etiology (principal)

== ENCOUNTER → 2024-07-19 | Outpatient (REF) | payer MEDICARE ==
[2024-07-19 17:51] LABS: BASO # 0.1 10^3/uL (0.0-0.2); BASO % 1.2 % (0.0-1.0); EOS # 0.1 10^3/uL (0.0-0.5); EOS % 1.2 % (0.0-3.0); HEMATOCRIT 40.4 % (36.0-47.0); HEMOGLOBIN 12.6 g/dl (12.0-15.5); LYMPH # 1.8 10^3/uL (1.5-5.0); LYMPH % 36.1 % (24.0-44.0); MEAN CORPUSCULAR HEMOGLOBIN 27.8 pg (27.0-33.0); MEAN CORPUSCULAR HGB CONC 31.2 g/dl (32.0-36.5); MONO # 0.4 10^3/uL (0.0-0.8); MONO % 8.8 % (2.0-8.0); NEUTROPHILS # 2.6 10^3/uL (1.5-8.5); NEUTROPHILS % 52.5 % (36.0-66.0); PLATELET COUNT, AUTOMATED 244 10^3/uL (150-450); RED BLOOD COUNT 4.54 10^6/uL (4.00-5.40)
[2024-07-19 18:11] LABS: ALBUMIN 3.5 G/DL (3.2-5.2); BILIRUBIN,TOTAL 0.4 MG/DL (0.3-1.2); CALCIUM LEVEL 9.4 MG/DL (8.3-10.6); CREATININE FOR GFR 1.06 MG/DL (0.55-1.30); GLOMERULAR FILTRATION RATE 54.6 (>39); HDL CHOLESTEROL 63.3 MG/DL (>40); LDL CHOLESTEROL 114.3 MG/DL (<100); NON-HDL-C 126.7 MG/DL; POTASSIUM SERUM 4.4 MMOL/L (3.5-5.1); TOTAL PROTEIN 6.5 G/DL (5.7-8.2)
== END ==
LOC: M SFHCCAPE 07:11
PROVIDERS: ATTEND Physician Assistant Medical
DX: I10 Essential (primary) hypertension (principal); K22.70 Barrett's esophagus without dysplasia; I48.91 Unspecified atrial fibrillation; R73.03 Prediabetes; E78.2 Mixed hyperlipidemia

== ENCOUNTER → 2025-01-24 | Outpatient (REF) | payer MEDICARE ==
[2025-01-24 16:48] LABS: BASO # 0.1 10^3/uL (0.0-0.2); BASO % 1.6 % (0.0-1.0); EOS # 0.1 10^3/uL (0.0-0.5); EOS % 1.6 % (0.0-3.0); HEMOGLOBIN 12.8 g/dl (12.0-15.5); LYMPH # 1.9 10^3/uL (1.5-5.0); LYMPH % 44.7 % (24.0-44.0); MEAN CORPUSCULAR HEMOGLOBIN 28.3 pg (27.0-33.0); MEAN CORPUSCULAR VOLUME 88.5 fl (80.0-96.0); MONO # 0.3 10^3/uL (0.0-0.8); MONO % 7.6 % (2.0-8.0); NEUTROPHILS # 1.9 10^3/uL (1.5-8.5); NEUTROPHILS % 44.3 % (36.0-66.0); PLATELET COUNT, AUTOMATED 232 10^3/uL (150-450); RED BLOOD COUNT 4.52 10^6/uL (4.00-5.40); WHITE BLOOD COUNT 4.3 10^3/uL (4.0-10.0)
[2025-01-24 16:56] LABS: ALBUMIN 3.6 G/DL (3.2-5.2); BILIRUBIN,TOTAL 0.6 MG/DL (0.3-1.2); CALCIUM LEVEL 9.2 MG/DL (8.3-10.6); CREATININE FOR GFR 1.08 MG/DL (0.55-1.30); GLOMERULAR FILTRATION RATE 53.4 (>39); TOTAL PROTEIN 6.7 G/DL (5.7-8.2)
[2025-01-24 17:01] LABS: FOLATE 20.8 NG/ML (>5.4)
[2025-01-24 17:04] LABS: HEMOGLOBIN A1c 5.6 % (4.0-6.0)
== END ==
LOC: M SFHCCAPE 07:27
PROVIDERS: ATTEND Physician Assistant Medical
DX: I48.91 Unspecified atrial fibrillation (principal); K22.70 Barrett's esophagus without dysplasia; R73.03 Prediabetes

== ENCOUNTER → 2025-07-19 | Outpatient (REF) | payer MEDICARE ==
[2025-07-19 19:19] LABS: ALT/SGPT 55.0 U/L (7.0-40); AST/SGOT 117.0 U/L (<34); CALCIUM LEVEL 9.8 MG/DL (8.3-10.6); CARBON DIOXIDE LEVEL 29.0 MMOL/L (20-31); CHLORIDE LEVEL 106.0 MMOL/L (98-107); CHOLESTEROL LEVEL 195.0 MG/DL (<200); CHOLESTEROL RISK RATIO 2.99 (<5); CREATININE FOR GFR 1.03 MG/DL (0.55-1.30); GLOMERULAR FILTRATION RATE 58.1 (>39); LDL CHOLESTEROL 114.3 MG/DL (<100); NON-HDL-C 129.9 MG/DL; POTASSIUM SERUM 4.5 MMOL/L (3.5-5.1); SODIUM LEVEL 144.0 MMOL/L (136-145); TRIGLYCERIDES LEVEL 78.0 MG/DL (<150)
[2025-07-19 19:56] LABS: ESTIMATED AVERAGE GLUCOSE 126.0 MG/DL (60-110)
== END ==
LOC: M SFHCCAPE 07:10
PROVIDERS: ATTEND Physician Assistant Medical
DX: I10 Essential (primary) hypertension (principal); I48.91 Unspecified atrial fibrillation; R73.03 Prediabetes; E78.2 Mixed hyperlipidemia

== ENCOUNTER → 2025-08-04 | Outpatient (REF) | payer MEDICARE ==
[2025-08-04 18:55] LABS: ALT/SGPT 21 U/L (7.0-40); AST/SGOT 20 U/L (<34); FREE T4 1.16 NG/DL (0.89-1.76); IRON (FE) 84 UG/DL (50-170); PERCENT SATURATION 29.7 % (13.2-45.0)
[2025-08-04 19:02] LABS: HEPATITIS B SURFACE ANTIBODY POSITIVE (POSITIVE)
[2025-08-04 19:35] LABS: HEPATITIS C VIRUS ABY INDEX < 0.02 INDEX (<0.8)
== END ==
LOC: M SFHCCAPE 07:41
PROVIDERS: ATTEND Physician Assistant Medical
DX: R74.8 Abnormal levels of other serum enzymes (principal)

== ENCOUNTER → 2025-08-29 | Outpatient (CLI) | payer MEDICARE | LOC: M RAD 08:16 | PROVIDERS: ATTEND Physician Assistant Medical | DX: R74.8 Abnormal levels of other serum enzymes (principal) ==